=== PATIENT | female | born 1970 | race Caucasian/White ===

== ENCOUNTER 2021-11-23 15:15 | Emergency (ER) | payer OTHER ==
[~2021-11-23] VITALS: Ht 157.5 cm; Wt 81.2 kg
[2021-11-23] MEDS ORDERED: IV NORMAL SALINE 1,000ML 1,000 ML IV ONE (16:00)
--- NOTE | 2021-11-23 16:11 | EKG ---
[address] [address] Test Date: 2021-11-23 Test Time: 15:33:40 Pat Name: CHEVY MORALES Department: Room: Gender: F Roll Former: IVÁN : 1970 Requested By: SUPRIYA WILLOUGHBY Order Number: [id number] Reading MD: Ken Talamantes Measurements Intervals [place] Rate: 84 P: 43 NV: 134 QRS: -13 QRSD: 94 T: 26 QT: 382 QTc: 455 Interpretive Statements SINUS RHYTHM LEFTWARD AXIS Electronically Signed On 11-24-2021 8:54:34 CDT by Ken Talamantes
[2021-11-23] MEDS ORDERED: METOPROLOL TART IMMED RELEASE 25 MG TABLET. PO ONE (16:15)
[2021-11-23 16:27] LABS: BASO # 0.1 x10^3/uL (0.0-0.2); BASO % 2 % (0-3); EOS % 0 % (0-3); HEMATOCRIT 44.7 % (36.0-47.0); HEMOGLOBIN 15.2 g/dL (12.0-15.5); LYMPH # 1.3 x10^3/uL (1.0-4.8); LYMPH % 17 % (24-48); MEAN CORPUSCULAR HEMOGLOBIN 31 pg (25-35); MEAN CORPUSCULAR HGB CONC 34 g/dL (31-37); MEAN CORPUSCULAR VOLUME 91 fL (79-100); MONO # 0.6 x10^3/uL (0.0-1.1); MONO % 8 % (0-9); NEUT # 5.6 x10^3uL (1.8-7.7); NEUT % 74 % (31-73); PLATELET COUNT 284 x10^3/uL (140-400); RED BLOOD COUNT 4.92 x10^6/uL (3.50-5.40); RED CELL DISTRIBUTION WIDTH 13.5 % (11.5-14.5); WHITE BLOOD COUNT 7.6 x10^3/uL (4.0-11.0)
--- NOTE | 2021-11-23 16:27 | RAD ---
EXAMINATION: CT HEAD/BRAIN WO. TECHNIQUE: Noncontrast axial images of the brain were obtained with coronal and sagittal reconstructi ons. One or more of the following radiation dose reduction techniques was used: automated exposure control , adjustment of mA and/or KV according to patient size, and/or utilization of iterative reconstructio n technique. HISTORY: 51 years Female Reason: dizziness, headache, confusion. FINDINGS: There is no intracranial hemorrhage, edema or mass effect. The brain parenchyma appears un remarkable. Size of the ventricles is appropriate. The visualized portions of the orbits and paranasal sinuses appear unremarkable. IMPRESSION: Unremarkable exam. Electronically signed by: Tarun Montano MD (11/23/2021 4:25 PM) [id number]
--- NOTE | 2021-11-23 16:38 | RAD ---
PA and lateral chest. HISTORY: Dizzy, weakness PA and lateral views were taken of the chest. There is no pneumothorax or pleural effusion. Lungs are clear. Heart is normal in size. IMPRESSION: 1. No acute chest disease. Electronically signed by: Francesco Henderson MD (11/23/2021 4:35 PM) [facility]
[2021-11-23 16:40] LABS: CALCIUM 9.2 mg/dL (8.5-10.1); POTASSIUM 3.7 mmol/L (3.5-5.1)
[2021-11-23 16:47] LABS: ALBUMIN 3.9 g/dL (3.4-5.0); MAGNESIUM 2.3 mg/dL (1.8-2.4); TOTAL BILIRUBIN 0.5 mg/dL (0.2-1.0); TOTAL PROTEIN 7.9 g/dL (6.4-8.2)
--- NOTE | 2021-11-23 17:06 | PHYS DOC ---
Past History Additional Past Medical Histor: RA, Lupus, kidney disease Past Surgical History: Hysterectomy, Other Additional Past Surgical Histo: mastectomy Alcohol Use: None General Adult EDM: Chief Complaint: DIZZY/LIGHT HEADED HPI: HPI: Patient is a 51-year-old female who presents with dizziness. Patient states that she was driving today when she had an episode of dizziness that lasted 5 to 10 minutes. Dizziness resolved quickly. Patient reports that she does have a headache at this time. Denies thunderclap or worst headache of her life. No light sensitivity.Patient states that she did not take her blood pressure medicine today. Denies nausea/vomiting/diarrhea. No chest pain, no shortness of breath. Denies recent illness. Patient has past history of breast cancer, rheumatoid arthritis, lupus, hypertension. Review of Systems: Review of Systems: ROS At least 10 ROS systems have been reviewed and are negative except as documented in the HPI. General: Negative except as outlined in HPI above. Skin: Negative except as outlined in HPI above. HEENT: Negative except as outlined in HPI above. Neck: Negative except as outlined in HPI above. Respiratory: Negative except as outlined in HPI above.. Cardiovascular: Negative except as outlined in HPI above. Abdomen: Negative except as outlined in HPI above. : Negative except as outlined in HPI above. Back/MSK: Negative except as outlined in HPI above. Neuro: Negative except as outlined in HPI above. Psych: Negative except as outlined in HPI above. Current Medications: Current Meds: Current Medications Medications (Trade) Dose Ordered Sig/Gregory Start Time Stop Time Status Last Admin Dose Admin Metoprolol Tartrate (Lopressor) 50 mg 1X ONCE 11/23/21 16:15 11/23/21 16:16 DC 11/23/21 16:39 50 MG Sodium Chloride 1,000 ml @ 1,000 mls/hr 1X ONCE 11/23/21 16:00 11/23/21 16:59 11/23/21 16:00 1,000 MLS/HR Allergies: Allergies: Allergies Coded Allergies Type Severity Reaction Last Updated Verified No Known Drug Allergies 11/23/21 No Physical Exam: PE: Constitutional: Well developed, well nourished, no acute distress, non-toxic appearance. [] HENT: Normocephalic, atraumatic, bilateral external ears normal, oropharynx moist, no oral exudates, nose normal. [] Eyes: PERRLA, EOMI, conjunctiva normal, no discharge. [] Neck: Normal range of motion, no tenderness, supple, no stridor. [] Cardiovascular:Heart rate regular rhythm, no murmur [] Lungs & Thorax: Bilateral breath sounds clear to auscultation [] Abdomen: Bowel sounds normal, soft, no tenderness, no masses, no pulsatile masses. [] Skin: Warm, dry, no erythema, no rash. [] Back: No tenderness, no CVA tenderness. [] Extremities: No tenderness, no cyanosis, no clubbing, ROM intact, no edema. [] Neurologic: Alert and oriented X 3, normal motor function, normal sensory function, no focal deficits noted, left-sided headache Psychologic: Affect normal, judgement normal, mood normal. [] Current Patient Data: Labs: Laboratory Tests Test 11/23/21 15:25 11/23/21 15:58 Glucose (Fingerstick) 139 mg/dL (70-99) H White Blood Count 7.6 x10^3/uL (4.0-11.0) Red Blood Count 4.92 x10^6/uL (3.50-5.40) Hemoglobin 15.2 g/dL (12.0-15.5) Hematocrit 44.7 % (36.0-47.0) Mean Corpuscular Volume 91 fL (79-100) Mean Corpuscular Hemoglobin 31 pg (25-35) Mean Corpuscular Hemoglobin Concent 34 g/dL (31-37) Red Cell Distribution Width 13.5 % (11.5-14.5) Platelet Count 284 x10^3/uL (140-400) Neutrophils (%) (Auto) 74 % (31-73) H Lymphocytes (%) (Auto) 17 % (24-48) L Monocytes (%) (Auto) 8 % (0-9) Eosinophils (%) (Auto) 0 % (0-3) Basophils (%) (Auto) 2 % (0-3) Neutrophils # (Auto) 5.6 x10^3uL (1.8-7.7) Lymphocytes # (Auto) 1.3 x10^3/uL (1.0-4.8) Monocytes # (Auto) 0.6 x10^3/uL (0.0-1.1) Eosinophils # (Auto) 0.0 x10^3/uL (0.0-0.7) Basophils # (Auto) 0.1 x10^3/uL (0.0-0.2) Sodium Level 142 mmol/L (136-145) Potassium Level 3.7 mmol/L (3.5-5.1) Chloride Level 103 mmol/L (98-107) Carbon Dioxide Level 29 mmol/L (21-32) Anion Gap 10 (6-14) Blood Urea Nitrogen 16 mg/dL (7-20) Creatinine 1.0 mg/dL (0.6-1.0) Estimated GFR (Cockcroft-Gault) 58.0 BUN/Creatinine Ratio 16 (6-20) Glucose Level 119 mg/dL (70-99) H Calcium Level 9.2 mg/dL (8.5-10.1) Magnesium Level 2.3 mg/dL (1.8-2.4) Total Bilirubin 0.5 mg/dL (0.2-1.0) Aspartate Amino Transferase (AST) 23 U/L (15-37) Alanine Aminotransferase (ALT) 76 U/L (14-59) H Alkaline Phosphatase 105 U/L (46-116) Total Protein 7.9 g/dL (6.4-8.2) Albumin 3.9 g/dL (3.4-5.0) Albumin/Globulin Ratio 1.0 (1.0-1.7) Vital Signs: Vital Signs Date Time Temp Pulse Resp B/P (MAP) Pulse Ox O2 Delivery O2 Flow Rate FiO2 11/23/21 16:39 89 136/98 11/23/21 15:21 98.0 18 100 Room Air EKG: EKG: [] Radiology/Procedures: Radiology/Procedures: []EXAMINATION: CT HEAD/BRAIN WO. TECHNIQUE: Noncontrast axial images of the brain were obtained with coronal and sagittal reconstructions. One or more of the following radiation dose reduction techniques was used: automated exposure control, adjustment of mA and/or KV according to patient size, and/or utilization of iterative reconstruction technique. HISTORY: 51 years Female Reason: dizziness, headache, confusion. FINDINGS: There is no intracranial hemorrhage, edema or mass effect. The brain parenchyma appears unremarkable. Size of the ventricles is appropriate. The visualized portions of the orbits and paranasal sinuses appear unremarkable. IMPRESSION: Unremarkable exam. Electronically signed by: Tarun Montano MD (11/23/2021 4:25 PM) [id number] PA and lateral chest. HISTORY: Dizzy, weakness PA and lateral views were taken of the chest. There is no pneumothorax or pleural effusion. Lungs are clear. Heart is normal in size. IMPRESSION: 1. No acute chest disease. Electronically signed by: Francesco Henderson MD (11/23/2021 4:35 PM) [facility] Heart Score: C/O Chest Pain: No Risk Factors: Risk Factors: DM, Current or recent (<one month) smoker, HTN, HLP, family history of CAD, obesity. Risk Scores: Score 0 - 3: 2.5% MACE over next 6 weeks - Discharge Home Score 4 - 6: 20.3% MACE over next 6 weeks - Admit for Clinical Observation Score 7 - 10: 72.7% MACE over next 6 weeks - Early Invasive Strategies Course & Med Decision Making: Course & Med Decision Making Pertinent Labs and Imaging studies reviewed. (See chart for details) [] 51-year-old female presents with dizziness that lasted 5 to 10 minutes. All symptoms resolved other than a headache on the left side. Denies thunderclap. Denies worst headache of her life. No neuro symptoms. NIH of 0. Work-up in ER consisted of CBC, CMP, CT head, chest x-ray, EKG. Patient given 1 dose of her blood pressure medication and NS bolus. All labs unremarkable. CT head and chest is unremarkable. Discussed all results with patient. Advised patient to drink plenty of fluids and take her blood pressure medicine as directed. Follow-up with PCP. Disc ussed return precautions. Patient verbalizes understanding of discharge instructions. Patient is hemodynamically stable upon disposition. Dragon Disclaimer: [place] Disclaimer: This electronic medical record was generated, in whole or in part, using a voice recognition dictation system. Departure Departure: Impression: Primary Impression: Dizziness Disposition: 01 HOME / SELF CARE / HOMELESS Condition: STABLE Referrals: SY HERNANDEZ MD (PCP) Patient Instructions: Dizziness, [id number] Additional Instructions: You are seen in the emergency room for dizziness. CT of your head was unremarkable. All labs unremarkable. Please follow-up with your PCP next week for further management. Make sure you are drinking plenty of fluids and taking her blood pressure medicine as directed. Return to the emergency room if you have worsening symptoms or concerns. EMERGENCY DEPARTMENT GENERAL DISCHARGE INSTRUCTIONS Thank you for coming to [facility] (ED) today and trusting us with you care. We trust that you had a positivie experience in our Emergency Department. If you wish to speak to the department management, you may call the director at [phone]. YOUR FOLLOW UP INSTRUCTIONS ARE FOLLOWS: 1. Do you have a private Doctor? If you do not have a private doctor, please a sk for a resource list of physicians or clinics that may be able to assist you with follow up care. 2. The Emergency Physician has interpreted your x-rays. The X-Ray specialist will also review them. If there is a change in the findings, you will be notified in 48 hours when at all possible. 3. A lab test or culture has been done, your results will be reviewed and you will be notified if you need a change in treatment. ADDITIONAL INSTRUCTIONS AND INFORMATION: 1. Your care today has been supervised by a physician who is specially trained in emergency care. Many problems require more than one evaluation for a complete diagnosis and treatment. We recommend that you schedule your follow up appointment as recommended to ensure complete treatment of you illness or injury. If you are unable to obtain follow up care and continue to have a problem, or if your condition worsens, we recommend that you return to the ED. 2. We are not able to safely determine your condition over the phone nor are we able to give sound medical advice over the phone. For these safety reasons, if you call for medical advice we will ask you to come to the ED for further evaluation. 3. If you have any questions regarding these discharge instructions please call the ED at [phone]. SAFETY INFORMATION: In the interest of safety, wellness, and injury prevention; we encourage you to wear your sealbelt, if you smoke; quite smoking, and we encourage family to use a protective helmet for bicycling and other sporting events that present an increased risk for head injury. IF YOUR SYMPTOMS WORSEN OR NEW SYMPTOMS DEVELOP, OR YOU HAVE CONCERNS ABOUT YOUR CONDITION; OR IF YOUR CONDITION WORSENS WHILE YOU ARE WAITING FOR YOUR FOLLOW UP APPOINTMENT; EITHER CONTACT YOUR PRIMARY CARE DOCTOR, THE PHYSICIAN WHOSE NAME AND NUMBER YOU WERE GIVEN, OR RETURN TO THE ED IMMEDIATELY. SUPRIYA WILLOUGHBY APRN Nov 23, 2021 17:06
[2021-11-23 17:27] VITALS: BP 153/83
== END 2021-11-23 17:28 | disposition home or self-care (01) ==
LOC: ER 15:15
DX: R42 Dizziness and giddiness (principal); R51.9 Headache, unspecified; M06.9 Rheumatoid arthritis, unspecified; I10 Essential (primary) hypertension
CPT/HCPCS: 36415; 70450; 71046; 80053; 82947; 83735; 85025; 93005; 96360; 99285; J7030